=== PATIENT | female | born 1985 | race Caucasian/White ===

== ENCOUNTER 2021-09-11 14:38 | Emergency (ER) | payer SELFPAY ==
[2021-09-11 15:50] LABS: Hemoglobin 14.6 g/dL (12.0-16.0); Mean Corpuscular Hemoglobin 31.5 pg (27.0-31.0); Mean Corpuscular Volume 98.5 fL (78.0-98.0); Mean Platelet Volume 7.6 fL (7.4-10.4); Platelet Count 341 thou/uL (130-400); RBC Distribution Width 12.4 % (11.5-14.5); Red Blood Cell (RBC) Count 4.62 mill/uL (4.20-5.40); White Blood Cell (WBC) Count 21.9 thou/uL (4.8-10.8)
[2021-09-11 16:15] LABS: Band 16 % (5-11); Lymphocytes 32 % (21-51); MDiff Complete? YES; Monocytes 1 % (0-10); Neutrophil 45 % (42-75); Platelet Morphology Comment Appears Adequate; RBC Morphology Normal; Reactive Lymphocytes 6 % (0-10)
== END 2021-09-11 16:56 | disposition home or self-care (01) ==
LOC: ERS 14:38
DX: N94.6 Dysmenorrhea, unspecified (principal)
CPT/HCPCS: 36415; 76856; 85025